=== PATIENT | female | born 1945 | race Caucasian/White ===

== ENCOUNTER → 2016-08-08 | Day surgery (SDC) | payer BC, MEDICARE, OTHER ==
[2016-08-08] VITALS (9 sets, daily range): BP systolic 125–148; BP diastolic 70–81
[~2016-08-08] VITALS: Ht 157.5 cm; Wt 72.6 kg
[~2016-08-08] MED LIST: DETROL LA2 MG ORAL; GLUCOSAMINE &1 EAC2 PO; LR 1000ml ONE; Lidocaine 1% MPF 10mg/ml 5ml ONE; OMEGA 3 FISH O1 EAC1 PO; Propofol 10mg/ml 20ml IV ONE; VITAMIN D1000 UNI1 ORAL
--- NOTE | 2016-08-08 07:54 | Short Stay Surgery H&P ---
History of Present Illness History of Present Illness Chief Complaint Abdominal pains, GERDs and dysphagia HPI Latisha Clark is a 71 year old female who was admitted on for Abdominal Pain Medication History Scheduled Cholecalciferol (Vitamin D3)* (Vitamin D*), 1,000 UNIT ORAL DAILY, (Reported) Gluc 2KCL/Chondr/Ronny Hy/Hy Ac (Glucosamine & Chondroitin Cap), 1 EACH PO DAILY, (Reported) [place]-3 Fatty Acids/Fish Oil ([place] 3 Fish Oil Softgel), 1 EACH PO DAILY, ( Reported) Tolterodine Tartrate (Detrol La), 2 MG ORAL DAILY, (Reported) Review of Systems Cardiovascular: Reports: no symptoms Respiratory: Reports: no symptoms Skeletal: Reports: no symptoms Gastrointestinal: Reports: gastro esophageal reflux disease Genitourinary: Reports: no symptoms Neurologic: Reports: no symptoms Endocrine: Reports: no symptoms Hematologic: Reports: no symptoms Physical Exam Vital Signs Last Vital Signs Date Time Temp Pulse Resp B/P Pulse Ox O2 Delivery O2 Flow Rate FiO2 08/08/16 07:26 97.9 67 18 148/81 97 Room Air Skin: normal HENT: normal Heart: normal Lungs: normal Abdomen: normal Extremities: normal Genitourinary: normal Plan Plan of Care Upper and lower GI endoscopy Preop Interventions None. Summary of Findings See the reports Final Diagnosis: Attestation Are the patient's medical conditions optimized for surgery? Attestation Response: yes BO BARTON Aug 08, 2016 07:54
--- NOTE | 2016-08-08 07:56 | Pre-Procedure Note/Attestation ---
Pre-Procedure Note/Attestation Complete Prior to Procedure Planned Procedure: left Procedure Narrative: The endoscopic exam of the upper and the lower GI tract. Indications for Procedure Pre-Operative Diagnosis: R/O Peptic ulcer/gastric esophagitis colon cancer. Attestation I attest that I discussed the nature of the procedure; its benefits; risks and complications; and alternatives (and the risks and benefits of such alternatives ), prior to the procedure, with the patient (or the patient's legal senior sales representative). I attest that, if there was a reasonable possibility of needing a blood transfusion, the patient (or the patient's legal senior sales representative) was given the [facility] standardized written summary, pursuant to the Jaquan Manda Blood Safety Act ([place] Health and Safety Code # 1645, as amended). I attest that I re-evaluated the patient just prior to the surgery and that there has been no change in the patient's H&P, except as documented below: ORALIA,SAID Aug 08, 2016 07:55
--- NOTE | 2016-08-08 08:21 | Endoscopy Procedure Note ---
Endoscopy Procedure Note Indication for Procedure: Abdominal pains, dysphagia, screening colon Procedures Performed: EGD - Large Hiatal Hernia oterwise normal upper GI endoscopy, biopsy obtained per random from antral area., colonoscopy - Minimal internal hemorrohides with hyperplastic, 3mm in size over the splenic felxure removed by cold biopsy forceps and general diverticulosis. Specimen: yes Pt Tolerated Procedure Well: Yes Estimated Blood Loss: none Anesthesiologist: Dr. Grace Anesthesia: moderate sedation Medication Given: see anesthesia record Implant(s) used?: No 50 yrs or older w/o bx or poly: Yes 10yrs. F/U not recommended: Yes If not recommended, why?: 10 yrs. F/U needed: Yes 18 years or older w/prev. colo: Yes Med reason:<3 yrs.: System Reason:<3 yrs.: Last colonoscopy >= to 3yrs: Yes BO BARTON Aug 08, 2016 08:21
--- NOTE | 2016-08-08 08:23 | Discharge Instructions ---
Discharge Instructions Discharge Instructions Follow up with: See the doctor after 2 weeks in the office for follow up. For Congestive Heart Failure Reminder Report to your physician any weight gain of 5 pounds or more in one week. BO BARTON Aug 08, 2016 08:23
--- NOTE | 2016-08-08 08:31 | Immediate Post-Op Evaluation ---
Immediate Post-Op Evalulation Immediate Post-Op Evalulation Procedure: EGD/Colonoscopy Date of Evaluation: Aug 08, 2016 Time of Evaluation: 08:25 IV Fluids: 300 Blood Pressure Systolic: 135 Blood Pressure Diastolic: 60 Pulse Rate: 67 Respiratory Rate: 14 O2 Sat by Pulse Oximetry: 100 Temperature (Fahrenheit): 97.2 Nausea: No Vomiting: No Complications none Patient Status: awake, reacts, patent Hydration Status: adequate Drug: none GILMARRIFAISALIONJENELLE CRNA Aug 08, 2016 08:31
--- NOTE | 2016-08-08 08:33 | Anethesia Preoperative Eval ---
Anesthesia Pre-op PMH/ROS General Date of Evaluation: Aug 08, 2016 Time of Evaluation: 08:00 Anesthesiologist: danielle ASA Score: ASA 2 Mallampati Score Class I : Soft palate, uvula, fauces, pillars visible Class II: Soft palate, uvula, fauces visible Class III: Soft palate, base of uvula visible Class IV: Only hard plate visible Mallampati Classification: Class II Surgeon: amarjit Diagnosis: abd pain Surgical Procedure: etd/Colonoscopy Anesthesia History: none Family History: no anesthesia problems Allergies: Coded Allergies: No Known Allergies (Unverified , 08/08/16) Medications: see eMAR Past Medical History Pulmonary: Denies: COPD, GORDO, asthma, other Gastrointestinal/Genitourinary: Denies: CRI, ESRD, GERD, other Neurologic/Psychiatric: Denies: CVA, TIA, dementia, depression/anxiety, other Endocrine: Denies: DM, hypothyroidism, other, steroids HEENT: Denies: [place] (L), [place] (R), cataract (L), cataract (R), glaucoma, other Hematology/Immune: Denies: DVT, anemia, bleeding disorder, other Musculoskeletal/Integumentary: Denies: DDD, DJD, OA, RA, edema, other Other: obesity PSxH Narrative: colonoscopy Anesthesia Pre-op Phys. Exam Physician Exam Last Vital Signs Date Time Temp Pulse Resp B/P Pulse Ox O2 Delivery O2 Flow Rate FiO2 08/08/16 07:26 97.9 67 18 148/81 97 Room Air Constitutional: NAD Neurologic: CN 2-12 intact Cardiovascular: RRR Respiratory: CTA Gastrointestinal: S/NT/ND Airway Exam Mallampati Classification 2 Mallampati Score: Class II MO: full ROM: full Dentures: no lower, no upper Anesthesia Pre-op A/P Studies Pre-op Studies: EKG - SR Risk Assessment & Plan Plan: mac Status Change Before Surgery: No Pre-Antibiotics Drug: none JENELLE CHRISTINE CRNA Aug 08, 2016 08:33
--- NOTE | 2016-08-08 09:02 | 48 Hour Post Anesthesia Eval ---
Post Anesthesia Evaluation Procedure: EGD/Colonoscopy Date of Evaluation: Aug 08, 2016 Time of Evaluation: 09:02 Blood Pressure Systolic: 148 0: 80 Pulse Rate: 69 Respiratory Rate: 14 O2 Sat by Pulse Oximetry: 97 Airway: patent Nausea: No Vomiting: No Hydration Status: adequate Mental Status/LOC: patient returned to baseline Post-Anesthesia Complications: none Follow-up care needed: N/A JENELLE CHRISTINE CRNA Aug 08, 2016 09:02
--- NOTE | 2016-08-08 10:38 | Operative Note - Dictated ---
DATE OF OPERATION: 08/08/2016 PROCEDURE: Esophagogastroduodenoscopy with biopsy. POSTOPERATIVE DIAGNOSES: Abdominal pain and heartburn. POSTOPERATIVE DIAGNOSES: Large hiatal hernia, otherwise normal upper gastrointestinal endoscopy. Biopsy was taken per random from gastric body. MEDICATIONS USED: Per Dr. Grace, anesthesiologist INSTRUMENT: GIF Olympus upper gastrointestinal video endoscope. DESCRIPTION OF PROCEDURE: The patient after arriving endoscopy unit, was told about risks and benefits of the procedure, which she accepted and signed the informed consent. At this time, she was put on the left lateral decubitus position. After adequate IV sedation, scope was gently passed through the cricopharyngeal area, was lodged into the upper esophagus, gradually advanced towards gastroesophageal junction. The entire length of the esophagus looked normal. No evidence of varices, inflammatory process, ulceration, etc. was found. However, there was a larger hiatal hernia noted without any Worthington's. At this point, the scope was advanced into normal looking. The stomach areas of the fundus and the body and the antrum were examined, which looked quite normal without any evidence of inflammatory process, ulceration, polyps, tumors etc. One random biopsy from the antrum was obtained. Subsequently, the scope was passed through normal looking pylorus. First and second portion of duodenum were found to be also within normal limits. At this point, the procedure was terminated. The patient tolerated the procedure well. Said Fadi Baldwin DR: Toby JOB#: [id number] CC:
--- NOTE | 2016-08-08 11:28 | Operative Note - Dictated ---
PROCEDURE: Total colonoscopy with polypectomy. PREOPERATIVE DIAGNOSES: 1. Splenic colonoscopy. 2. Abdominal pain. POSTOPERATIVE DIAGNOSES: 1. Small hiatal hernia. 2. A 2 mm hyperplastic diminutive polyp removal from the splenic flexure with cold biopsy forceps. 3. Generalized diverticulosis. MEDICATIONS USED: Per Dr. Grace, anesthesiologist. INSTRUMENT: GIF Olympus videocolonoscope. DESCRIPTION OF PROCEDURE: The patient after arriving endoscopy unit, was told about risks and benefits of the procedure, which she accepted and signed the informed consent. She was then put on the left lateral decubitus position. After adequate IV sedation, scope was gently passed through the anal area, which revealed evidence of minimal internal hemorrhoidal tag. A retroflexion maneuver was applied in the rectum, which was not significant. At this time, the scope was passed through normal looking rectum and through a very redundant left colon. The scope was gradually advanced toward the splenic flexure. The left colon was normal except occasional findings of diverticular lesions. Over the splenic flexure, there was an incidental finding of 2 mm hyperplastic diminutive polypoid lesion, which was grabbed with cold biopsy forceps a couple of situations and removed it totally. At this time, the scope was then advanced into transverse colon revealing diverticular lesions and gradually reached to hepatic flexure and guided into the right colon all the way to the base of the cecum. All these areas remained to be normal. The colon cleanup was satisfactory. Finally within 6 minutes the scope was gradually pulled out and the procedure was terminated without finding any other pathology. The patient tolerated the procedure well and left the endoscopy room in good condition. Said Fadi Baldwin DR: Toby JOB#: [id number] CC: EMILIANO
== END | disposition home or self-care (01) ==
LOC: GAS 05:53
DX: Z12.11 Encounter for screening for malignant neoplasm of colon (principal); D12.3 Benign neoplasm of transverse colon; K64.8 Other hemorrhoids; K57.30 Diverticulosis of large intestine without perforation or abscess without bleeding; K29.50 Unspecified chronic gastritis without bleeding; R12 Heartburn; R13.10 Dysphagia, unspecified; K44.9 Diaphragmatic hernia without obstruction or gangrene; K21.9 Gastro-esophageal reflux disease without esophagitis; E66.9 Obesity, unspecified
CPT/HCPCS: 43239; 45380; J2704; J7120; 94003; 94150